=== PATIENT | male | born 1985 | race Caucasian/White ===

== ENCOUNTER 2021-02-05 19:01 | Emergency (ER) | payer OTHER ==
[2021-02-05 19:50] VITALS: BP 132/86; PULSE 81; TEMP 98.1; BMI 27.4
== END 2021-02-05 20:23 | disposition home or self-care (01) ==
LOC: JER 19:01
DX: J02.9 Acute pharyngitis, unspecified (principal); Z11.52 Encounter for screening for COVID-19
CPT/HCPCS: 99283-25; C9803; U0003